=== PATIENT | male | born 1995 | race Two or more races ===

== ENCOUNTER 2019-03-04 14:19 | Emergency (ER) | payer OTHER ==
[~2019-03-04] VITALS: Ht 180.3 cm; Wt 65.8 kg
[2019-03-04 15:36] LABS: BILIRUBIN,URINE Negative (NEGATIVE); BLOOD, URINE Trace-lysed Ery/uL (NEGATIVE); COLOR,URINE Yellow (YELLOW); KETONES,URINE Negative (NEGATIVE); LEUKOCYTE ESTERASE ,URINE Trace (NEGATIVE); NITRITE, URINE Negative (NEGATIVE); PH,URINE 5.5 (5.0-8.0); PROTEIN,URINE Negative (NEGATIVE); UGLUCOSE Negative (NEGATIVE); UROBILINOGEN,URINE 0.2 EU/dL (0.2)
[2019-03-04 15:38] LABS: APPEARANCE,URINE HAZY (CLEAR)
[2019-03-04 15:48] LABS: BACTERIA,URINE Few /HPF (None Seen); SQUAMOUS EPITHELIAL CELL,UR Few /HPF (None Seen)
[2019-03-04] MEDS ORDERED: LIDOCAINE /MPF 1% VIAL 5 ML VIAL ONE (16:15)
[2019-03-04] MEDS ORDERED: CEFTRIAXONE 500 MG VIAL ONE (16:15)
[2019-03-04] MEDS: CEFTRIAXONE 1 G VIAL IM ONE (16:30)
[2019-03-04 16:46] VITALS: BP 116/72
== END 2019-03-04 16:46 | disposition home or self-care (01) ==
LOC: ER 14:19
DX: Z20.2 Contact with and (suspected) exposure to infections with a predominantly sexual mode of transmission (principal); F12.10 Cannabis abuse, uncomplicated
CPT/HCPCS: 81001; 87086; 87491; 87591; 96372; 99283; J0696; J3490; 81000-TC